=== PATIENT | male | born 1990 | race African-American/Black ===

== ENCOUNTER 2021-02-10 07:54 | Emergency (ER) | payer MEDICAID ==
[~2021-02-10] VITALS: Ht 182.9 cm; Wt 114.5 kg
[2021-02-10 07:59] VITALS: BP 145/84
[2021-02-10 09:07] LABS: HEMATOCRIT 44.9 % (36-52); HEMOGLOBIN 15.5 g/dL (12.0-18.0); WHITE BLOOD COUNT (AUTO) 5.4 K/uL (4.8-10.8)
[2021-02-10 09:11] LABS: BASOPHILS # (AUTO) 0.1 K/uL (0.00-0.22); EOSINOPHILS # (AUTO) 0.3 K/uL (0-0.4); EOSINOPHILS % (AUTO) 4.8 % (0.0-4.0); LYMPHOCYTES # (AUTO) 1.8 K/uL (2.0-11.5); LYMPHOCYTES % (AUTO) 34.1 % (20.5-51.1); MEAN CORPUSCULAR HEMOGLOBIN 31 pg (27-31); MEAN CORPUSCULAR HGB CONC 35 g/dL (33-37); MEAN CORPUSCULAR VOLUME 89.3 fL (80-94); MONOCYTES # (AUTO) 0.4 K/uL (0.8-1.0); MONOCYTES % (AUTO) 6.8 % (1.7-9.3); NEUTROPHILS # (AUTO) 2.9 K/uL (1.8-7.7); NEUTROPHILS % (AUTO) 53.3 % (42.2-75.2); PLATELET COUNT (AUTO) 283 K/uL (140-450); RED BLOOD CELL COUNT(AUTO) 5.03 MIL/uL (4.20-6.10)
[2021-02-10 09:22] LABS: APPEARANCE,URINE CLEAR (CLEAR); BILIRUBIN,URINE NEGATIVE (NEGATIVE); BLOOD, URINE TRACE-I (NEGATIVE); COLOR,URINE YELLOW (YELLOW); LEUKOCYTE ESTERASE ,URINE NEGATIVE (NEGATIVE); NITRITE, URINE NEGATIVE (NEGATIVE); UGLUCOSE NEGATIVE (NEGATIVE)
[2021-02-10 09:34] LABS: ALBUMIN 4.3 g/dL (3.4-5.0); ANION GAP 12.3 (8-16); CARBON DIOXIDE 26.9 mmol/L (21-32); CREATININE 1.2 mg/dL (0.6-1.3); POTASSIUM 4.2 mmol/L (3.5-5.1); TOTAL BILIRUBIN 0.3 mg/dL (0.0-1.0)
[2021-02-10 09:37] LABS: RBC,URINE 0-5 /HPF (0-5); WBC,URINE 0-5 /HPF (0-5)
[2021-02-10] MEDS ORDERED: CEPH-588 PO (09:52)
[2021-02-10 09:55] VITALS: BP 145/84
== END 2021-02-10 09:56 | disposition home or self-care (01) ==
LOC: MED 07:54
DX: N39.0 Urinary tract infection, site not specified (principal); R31.9 Hematuria, unspecified; F12.90 Cannabis use, unspecified, uncomplicated
CPT/HCPCS: 36415; 80053; 81001; 85025; 85651; 87491; 99283

== ENCOUNTER 2021-02-13 15:02 | Emergency (ER) | payer MEDICAID ==
[~2021-02-13] VITALS: Ht 182.9 cm; Wt 112.9 kg
[~2021-02-13 15:02] MED LIST: CEPH-588 PO
[2021-02-13 15:11] VITALS: BP 115/57
--- NOTE | 2021-02-13 15:15 | NUR ---
Pt ambulated to ER bed 8 with a steady gait.
--- NOTE | 2021-02-13 15:18 | NUR ---
RN at pt bedside for evaluation.
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
--- NOTE | 2021-02-13 15:24 | NUR ---
AT BEDSIDE FOR EVAULATION
[2021-02-13] MEDS ORDERED: MORPHINE SULFATE 5 MG/ML VIAL IM ONE (15:35)
[2021-02-13] MEDS ORDERED: ONDANSETRON 4 MG ODT PO ONE (15:35)
[2021-02-13] MEDS ORDERED: ACETAMINOPHEN 325 MG TAB PO ONE (15:35)
[2021-02-13] MEDS ORDERED: KETOROLAC 15 MG/ML VIAL IM ONE (15:35)
[2021-02-13] MEDS ORDERED: BACITRACIN OINT 500 UNITS/GM PKT TP ONE ×5 (15:40→17:25)
--- NOTE | 2021-02-13 15:50 | NUR ---
PATIENT TAKEN TO XRAY VIA W/C
[2021-02-13] MEDS ORDERED: ONDANSETRON 4 MG/2 ML VIAL IVP ONE (15:55)
[2021-02-13] MEDS ORDERED: NACL 0.9% 1,000 ML IV ONE (15:55)
[2021-02-13] MEDS ORDERED: MORPHINE SULFATE 4 MG/ML SYR IVP ONE (15:55)
[2021-02-13] MEDS ORDERED: KETOROLAC 15 MG/ML VIAL IVP ONE (15:55)
--- NOTE | 2021-02-13 16:11 | NUR ---
Pt taken to ER bed 8 via W/C.
[2021-02-13] MEDS ORDERED: HYDROcodone/APAP 5/325 MG 1 TAB TAB PO ONE (16:35)
[2021-02-13] MEDS ORDERED: IBUPROFEN 600 MG TAB PO ONE (16:35)
[2021-02-13] MEDS ORDERED: IBUP-2213 PO (16:52)
[2021-02-13] MEDS ORDERED: ACET-1182 PO (16:52)
[2021-02-13] MEDS ORDERED: BACI1PAC6 TP (16:52)
[2021-02-13] MEDS ORDERED: [UNRECOGNIZED DRUG - CODE] PO (16:52)
--- NOTE | 2021-02-13 17:44 | NUR ---
APPLIED BACITRACIN TO PTS WOUNDS AND DRESSED WITH NON-ADHERENT GUAZE PADS X8 AND WRAPPED WITH 3" BULKY DRESSING ON BI-LATERAL ARMS. PT PLACED IN 5" LONG ARM POSTERIOR ORTHO-GLASS SPLINT AND PLACED IN LEFT SHOULDER SLING. CMS WNL BEFORE AND AFTER AND RN AND ERMD NOTIFIED.
--- NOTE | 2021-02-13 17:51 | NUR ---
Patient discharged with v/s stable. Written and verbal after care instructions given and explained. Patient alert, oriented and verbalized understanding of instructions. Ambulatory with steady gait. All questions addressed prior to discharge. ID band removed. Patient advised to follow up with PMD. Rx of ACETAMINOPHEN 325 MG, BACIRACIN ZINC, NORCO 5-325 MG, CEPHALEXIN 500 MG given. Patient educated on indication of medication including possible reaction and side effects. Opportunity to ask questions provided and answered.
== END 2021-02-13 17:41 | disposition home or self-care (01) ==
LOC: MED 15:02
DX: S52.135A Nondisplaced fracture of neck of left radius, initial encounter for closed fracture (principal); S60.511A Abrasion of right hand, initial encounter; S80.211A Abrasion, right knee, initial encounter; S80.212A Abrasion, left knee, initial encounter; V98.8XXA Other specified transport accidents, initial encounter; Y93.89 Activity, other specified; Y92.89 Other specified places as the place of occurrence of the external cause; Y99.8 Other external cause status
CPT/HCPCS: 29105; 73020; 73070; 73090; 73100; 73120; 90471; 90715; 99284; J1885; J2270; J2405

== ENCOUNTER 2021-02-24 08:31 | Emergency (ER) | payer MEDICAID, OTHER ==
[~2021-02-24] VITALS: Ht 182.9 cm; Wt 107.5 kg
[~2021-02-24 08:31] MED LIST changes: +ACET-1182 PO; +BACI1PAC6 TP; +IBUP-2213 PO; +[UNRECOGNIZED DRUG - CODE] PO
[2021-02-24 08:33] VITALS: BP 161/82
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
[2021-02-24] MEDS ORDERED: GENTAMICIN OP 0.3% 15 MG/5 ML BTL ONE (09:13)
[2021-02-24] MEDS ORDERED: GENTAMICIN OP 0.3% 15 MG/5 ML BTL OP ONE (09:15)
[2021-02-24] MEDS ORDERED: BACITRACIN OINT 500 UNITS/GM PKT TP ONE (09:15)
--- NOTE | 2021-02-24 09:30 | NUR ---
Labs drawn bedside and walked to lab
--- NOTE | 2021-02-24 09:35 | NUR ---
Ultrasound at bedside
[2021-02-24 09:48] LABS: BASOPHILS # (AUTO) 0.1 K/uL (0.00-0.22); BASOPHILS % (AUTO) 0.9 % (0.0-2.0); EOSINOPHILS # (AUTO) 0.1 K/uL (0-0.4); EOSINOPHILS % (AUTO) 2.4 % (0.0-4.0); HEMATOCRIT 45.7 % (36-52); HEMOGLOBIN 15.6 g/dL (12.0-18.0); LYMPHOCYTES # (AUTO) 1.8 K/uL (2.0-11.5); LYMPHOCYTES % (AUTO) 31.9 % (20.5-51.1); MEAN CORPUSCULAR HEMOGLOBIN 31 pg (27-31); MEAN CORPUSCULAR HGB CONC 34 g/dL (33-37); MEAN CORPUSCULAR VOLUME 89.6 fL (80-94); MONOCYTES # (AUTO) 0.4 K/uL (0.8-1.0); MONOCYTES % (AUTO) 6.9 % (1.7-9.3); NEUTROPHILS # (AUTO) 3.2 K/uL (1.8-7.7); NEUTROPHILS % (AUTO) 57.9 % (42.2-75.2); PLATELET COUNT (AUTO) 357 K/uL (140-450); RED CELL DISTRIBUTION WIDTH 12.9 % (11.6-13.7); WHITE BLOOD COUNT (AUTO) 5.6 K/uL (4.8-10.8)
[2021-02-24 09:52] LABS: APPEARANCE,URINE CLEAR (CLEAR); BILIRUBIN,URINE NEGATIVE (NEGATIVE); BLOOD, URINE 3+ (NEGATIVE); LEUKOCYTE ESTERASE ,URINE NEGATIVE (NEGATIVE); NITRITE, URINE NEGATIVE (NEGATIVE); UGLUCOSE NEGATIVE (NEGATIVE)
[2021-02-24 09:53] LABS: ANION GAP 13.4 (8-16); CARBON DIOXIDE 27.4 mmol/L (21-32); POTASSIUM 3.8 mmol/L (3.5-5.1)
[2021-02-24 09:55] LABS: COLOR,URINE SLIGHT BLOODY (YELLOW)
[2021-02-24 10:05] LABS: RBC,URINE 50-80 /HPF (0-5); WBC,URINE 0-5 /HPF (0-5)
--- NOTE | 2021-02-24 10:13 | NUR ---
PT PLACED IN LEFT LONG ARM POSTERIOR SPLINT FABRICATED OUT OF ORTHO-GLASS AND WRAPPED WITH 6" CLAUDIA WRAPS X2. PT ALSO PLACED IN LEFT ARM SLING, [facility] WNL BEFORE AND AFTER. RN NOTIFIED
[2021-02-24] MEDS ORDERED: ACET-10509 PO (10:46)
[2021-02-24 11:02] VITALS: BP 156/98
--- NOTE | 2021-02-24 11:03 | NUR ---
Patient discharged with v/s stable. Written and verbal after care instructions given and explained. Patient alert, oriented and verbalized understanding of instructions. Ambulatory with steady gait. All questions addressed prior to discharge. ID band removed. Patient advised to follow up with PMD. Rx of Tylenol extra strength given. Patient educated on indication of medication including possible reaction and side effects. Opportunity to ask questions provided and answered.
== END 2021-02-24 11:03 | disposition home or self-care (01) ==
LOC: MED 08:31
DX: S52.122A Displaced fracture of head of left radius, initial encounter for closed fracture (principal); R31.9 Hematuria, unspecified; F12.90 Cannabis use, unspecified, uncomplicated; Z79.899 Other long term (current) drug therapy; V98.8XXA Other specified transport accidents, initial encounter; Y93.89 Activity, other specified; Y92.89 Other specified places as the place of occurrence of the external cause; Y99.8 Other external cause status
CPT/HCPCS: 29105; 36415; 73030; 76770; 80048; 81001; 81002; 85025; 85610; 85730; 99285

== ENCOUNTER 2021-07-12 10:13 | Emergency (ER) | payer MEDICAID ==
[~2021-07-12] VITALS: Ht 182.9 cm; Wt 112.9 kg
[~2021-07-12 10:13] MED LIST changes: +ACET-10509 PO
[2021-07-12 10:16] VITALS: BP 144/75
--- NOTE | 2021-07-12 10:20 | NUR ---
Patient ambulated to bed 05 with steady/even gait
--- NOTE | 2021-07-12 10:23 | NUR ---
EMT at bedside for wound irrigation
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
--- NOTE | 2021-07-12 10:27 | NUR ---
PT LAC IRRIGATED WITH NORMAL SALINE AND LAC TRAY SET UP AT BED SIDE. ERMD NOTIFIED
--- NOTE | 2021-07-12 10:51 | NUR ---
Dr. Romero is evaluating pt at bedside
[2021-07-12] MEDS ORDERED: LIDOCAINE/EPI 1% 1:100000 20 ML VIAL INJ ONE (10:55)
[2021-07-12] MEDS ORDERED: ACETAMINOPHEN EXTRA STRENGTH 500 MG TAB PO ONE (10:55)
[2021-07-12] MEDS ORDERED: BACITRACIN OINT 500 UNITS/GM PKT TP ONE (11:25)
[2021-07-12] MEDS ORDERED: IBUP-2213 PO (11:29)
--- NOTE | 2021-07-12 11:33 | NUR ---
Patient discharged with v/s stable. Written and verbal after care instructions given and explained. Patient verbalized understanding. Ambulatory with steady gait. All questions addressed prior to discharge. Advised to follow up with PMD.
== END 2021-07-12 11:33 | disposition home or self-care (01) ==
LOC: MED 10:13
DX: S01.01XA Laceration without foreign body of scalp, initial encounter (principal); F17.200 Nicotine dependence, unspecified, uncomplicated; Z79.1 Long term (current) use of non-steroidal anti-inflammatories (NSAID); Z79.899 Other long term (current) drug therapy; W45.8XXA Other foreign body or object entering through skin, initial encounter; Y93.89 Activity, other specified; Y92.89 Other specified places as the place of occurrence of the external cause; Y99.8 Other external cause status
CPT/HCPCS: 12002; 99282; J2001